=== PATIENT | female | born 1960 | race Caucasian/White ===

== ENCOUNTER 2017-10-24 19:17 | Inpatient (IN) | payer OTHER ==
[~2017-10-24] VITALS: Ht 157.5 cm; Wt 41.2 kg
[2017-10-24 19:17] VITALS: BP 124/82
[~2017-10-24 19:17] MED LIST: 8 HOUR C500 MG PO; ACIDOPHILUS LA1 EACH PO; CELEXA 20 MG TA20 MG PO; DILANTIN100 MG PO; DILANTIN50 MG PO; ENTOCORT PO; FOLIC ACID1 MG PO; HYDROCHLOROTHIA25 M1 PO; LEVOTHYROXIN0.125 M1 PO; LEVOTHYROXINE 0.1 MG PO; LISINOPRIL40 MG PO; NORVASC10 MG PO; OS-CAL 500+D C1 EACH PO; PHENYTOIN PO; PHENYTOIN50 MG PO; POTASSIUM20 PO; PRENATAL TABLE1 EAC1 PO; PREVACID30 M1 PO; PROVIGIL 200 M200 MG PO; SIMVASTATIN40 MG PO; TENORETIC 50 T1 EACH PO; TYLENOL325 MG PO; VITAMIN D 5050000 I1 PO; VITAMIN D400 UNIT; WOMEN'S DAILY1 EAC2 PO; ZYLOPRIM
[2017-10-24 19:47] LABS: ABSOLUTE NEUTROPHILS 4.7 thou/uL (1.4-8.2); BASOPHILS 0.6 % (0.0-2.0); HEMATOCRIT 39.8 % (37.0-47.0); HEMOGLOBIN 13.8 gm/dL (12.0-15.0); MCH 30.1 pg (26.0-34.0); MCHC 34.7 g/dL (28.0-37.0); MCV 86.6 fL (80.0-100.0); MONOCYTES 5.5 % (1.0-8.0); PLATELET COUNT 174 thou/uL (150-400); POLYS 71.9 % (36.0-66.0); RDW 14.1 % (10.5-14.5); WBC 6.5 thou/uL (4.0-11.0)
[2017-10-24 19:48] LABS: ANION GAP 21 mmol/L (7-16); BUN 10 mg/dL (7-18); CALCIUM 9.2 mg/dL (8.5-10.1); CHLORIDE 101 mmol/L (98-107); CO2 18 mmol/L (21-32); CREATININE 1.4 mg/dL (0.6-1.0); GLUCOSE 176 mg/dL (74-106); POTASSIUM 3.7 mmol/L (3.5-5.1); SODIUM 140 mmol/L (136-145)
[2017-10-24 19:54] LABS: ALBUMIN 4.1 g/dL (3.4-5.0); DIRECT BILIRUBIN < 0.1 mg/dL (<0.1-0.3); SGOT 21 U/L (15-37); SGPT 14 U/L (30-65); TOTAL BILIRUBIN 0.3 mg/dL (<0.1-1.0); TOTAL PROTEIN 7.5 g/dL (6.4-8.2)
[2017-10-24 19:55] LABS: AMP/METHAMP Negative (Negative); BARBITURATES Negative (Negative); BENZODIAZEPINES Negative (Negative); COCAINE POSITIVE (Negative); METHADONE Negative (Negative); OPIATES Negative (Negative); PCP Negative (Negative)
[2017-10-24 21:02] VITALS: BP 116/78
[2017-10-24 21:20] VITALS: BP 144/86
[2017-10-24 23:30] VITALS: BP 137/83
[2017-10-25 04:10] VITALS: BP 134/83
[2017-10-25 07:58] VITALS: BP 142/92; BP 155/79
[2017-10-25 11:14] VITALS: BP 134/79
[2017-10-25 15:09] LABS: GLYCOHEMOGLOBIN (HGB A1C) 4.4 % (4.8-5.6)
[2017-10-25 15:20] VITALS: BP 136/84
[2017-10-25 19:23] VITALS: BP 126/84
[2017-10-26 04:44] VITALS: BP 140/88
[2017-10-26 07:53] VITALS: BP 154/90
[2017-10-26] MEDS ORDERED: FOLIC ACID1 MG PO (09:56)
[2017-10-26] MEDS ORDERED: PHENYTOIN50 MG PO (09:56)
[2017-10-26] MEDS ORDERED: VITAMIN B-1100 MG PO (09:56)
[2017-10-26 11:05] VITALS: BP 138/90
[2017-10-26 15:05] VITALS: BP 138/90
[2017-10-26 15:46] VITALS: BP 136/90
== END 2017-10-26 20:05 | disposition home or self-care (01) | DRG 100 ==
LOC: ER 19:17 → EROBS 20:14 → 3W 20:14
PROVIDERS: Emergency Medicine; Nurse Practitioner Acute Care
DX: G40.909 Epilepsy, unspecified, not intractable, without status epilepticus (principal); E43 Unspecified severe protein-calorie malnutrition; N17.9 Acute kidney failure, unspecified; Z68.1 Body mass index [BMI] 19.9 or less, adult; E03.9 Hypothyroidism, unspecified; F14.10 Cocaine abuse, uncomplicated; F17.210 Nicotine dependence, cigarettes, uncomplicated; R73.9 Hyperglycemia, unspecified; Z79.899 Other long term (current) drug therapy
CPT/HCPCS: 10879

== ENCOUNTER 2018-01-07 04:54 | Inpatient (IN) | payer OTHER ==
[~2018-01-07] VITALS: Ht 160 cm; Wt 48.5 kg
[2018-01-07] VITALS (25 sets, daily range): BP systolic 96–158; BP diastolic 64–97
--- NOTE | ~2018-01-07 | HC ---
[facility] [place] [place] [address] CONSULTATION Name: MALVIN DE LA VEGA Room #: 246-P ADM IN M.R.#: [id number] Admission: 01/07/18 Attend Phys: Garth Martinez Discharge: Date of : 62 Report #: [id number] THIS REPORT FOR: //name// CC: JENN Martinez Physician staff DATE OF SERVICE: 01/07/2018 HISTORY OF PRESENT ILLNESS: This is a 57-year-old female patient who will not provide any reliable history. In fact, she will not even talk to me. So, most of the history is taken from the records and talking to the nurses. This patient was apparently admitted with seizure. No firsthand description of the seizure is available. It was a grand mal seizure. It was a severe seizure, and her cocaine was positive. She had multiple admissions in the past. Last time she was seen was in October of this year, and she was seen by Dr. Pereira, and Dr. Pereira has seen her in May and Dr. Silva and another neurologist has seen her in the past too and looks like she always have a cocaine positive in her system. I went back as far as 2013, and at that time, this patient has seen me, and at that time, she has also presented with a seizure. She has a known seizure disorder, but she also has a known history of pretty persistent drug abuse, especially cocaine. It looks like she also has weakness on the left side, which is also old. I do not know what her baseline status is now. REVIEW OF SYSTEMS: Positive for pretty persistent cocaine use, last time her Dilantin dose was She is toxic on Dilantin, but her biggest problem continued to be positive cocaine, which she looks like uses persistently. REVIEW OF SYSTEMS: Also positive for hypothyroidism. She had a fall in the past. She has not been able to work after the fall. I do not have the available, so I cannot tell anything about any further history in this patient. She has seen psychiatrist in the past. Presently, she has a history of brain injury. Hypokalemia, elevated lactate level. She has a history of left hemiparesis. I carried out the best I could 14-point review of system. This was all I can get. PAST MEDICAL HISTORY: Positive for seizure as well as left-sided weakness. FAMILY HISTORY: Negative for any congenital epilepsies. SOCIAL HISTORY: She is , but the is not available. We will try to get hold of him. PHYSICAL EXAMINATION: Very limited. She is sleepy. She wakes up. She will not tell me what month it is. She does look like she has speech, she will not cooperate with the cranial nerve examination, she moved the right side, she did [facility] [address] [place] [address] CONSULTATION Name: MALVIN DE LA VEGA Room #: 246-P [facility] IN M.R.#: [id number] Admission: 01/07/18 Attend Phys: Garth Martinez Discharge: Date of : 62 Report #: [id number] not move the left side. Cardiac examinations appear to be noncontributory. She is thinly built individual who does not have any dysmorphic features of eyes, ears and face. I think her hearing is adequate. She does not have any edema, cyanosis or jaundice. Blood pressure is 104/71, respirations 16, pulse is 78, temperature is 98.2. LABORATORY DATA: His white count is normal. Potassium is low. No imaging study was done. IMPRESSION: Breakthrough seizure because of very persistent cocaine use, which has been documented in all the neurologist's notes as far as 2013. She has prior encephalomalacia of the brain because of injury or stroke and that would predispose her to seizure. She is Dilantin toxic. I will let the Dilantin level come down, we probably will give her some Keppra. There may be a better medication for her, but she has to stop taking cocaine, which I doubt she will, and because of that, her prognosis looks pretty bad. RECOMMENDATIONS: 1. Noncontrast CT of the head when the patient is able to cooperate. 2. Portable EEG. 3. Start Keppra. 4. Keep the Dilantin level therapeutic around 15 or so. Thank you very much for this referral. <ELECTRONICALLY SIGNED> By: Joe Hernandez MD 01/08/18 1422 1317 1803 Joe Hernandez MD /nt
--- NOTE | ~2018-01-07 | EEG ---
[facility] [place] [place] [address] ELECTROENCEPHALOGRAM Name: MALVIN DE LA VEGA Room #: 204-P [facility] IN M.R.#: [id number] Admission: 01/07/18 Attend Phys: Garth Thurston Discharge: 01/10/18 Date of : 62 Report #: [id number] THIS REPORT FOR: //name// CC: JENN Martinez Physician staff DATE OF SERVICE: 01/07/2018 INDICATION FOR PROCEDURE: This patient is being evaluated for seizures. DESCRIPTION OF PROCEDURE: The EEG was done by placing the electrodes by standard 10-20 system of electrode placement. Both referential and sequential montages were used for recording. Background activity is about 10 Hz and 30 microvolt. The patient went to sleep that is associated with bilaterally symmetrical sleep spindle and vertex sharp waves. Photic stimulation was unremarkable. Throughout the record, no active epileptiform activity was noticed. IMPRESSION: Moderately abnormal EEG because it is intermixed with theta range slowing on both sides. That is a nonspecific abnormality, which can occur with drowsiness, effect of psychotropic medication, dementia, etc. Clinical correlation is recommended. <ELECTRONICALLY SIGNED> By: Joe Hernandez MD 01/11/18 0943 39 52 Joe Hernandez MD /nt
[~2018-01-07 04:54] MED LIST changes: +VITAMIN B-1100 MG PO
[2018-01-07 05:32] LABS: URINE BILIRUBIN NEGATIVE (Negative); URINE BLOOD 1+ (Negative); URINE CLARITY SL CLOUDY; URINE COLOR YELLOW; URINE GLUCOSE-RANDOM* NEGATIVE (Negative); URINE KETONES NEGATIVE (Negative); URINE LEUKOCYTES-REFLEX NEGATIVE (Negative); URINE NITRITE-REFLEX NEGATIVE (Negative); URINE PROTEIN (DIPSTICK) 1+ (Negative); URINE UROBILINOGEN 0.2 E.U./dl (0.2-1.0)
[2018-01-07 05:37] LABS: ABSOLUTE NEUTROPHILS 4.4 thou/uL (1.4-8.2); BASOPHILS 0.3 % (0.0-2.0); HEMATOCRIT 36.3 % (37.0-47.0); HEMOGLOBIN 12.5 gm/dL (12.0-15.0); LYMPHOCYTES 19.3 % (24.0-44.0); MCH 30.3 pg (26.0-34.0); MCHC 34.4 g/dL (28.0-37.0); MCV 88.2 fL (80.0-100.0); MONOCYTES 5.6 % (1.0-8.0); PLATELET COUNT 124 thou/uL (150-400); POLYS 74.8 % (36.0-66.0); RBC 4.12 mil/uL (4.20-5.00); RDW 14.2 % (10.5-14.5); WBC 5.8 thou/uL (4.0-11.0)
[2018-01-07 05:42] LABS: CALCIUM 8.4 mg/dL (8.5-10.1); CREATININE 1.5 mg/dL (0.6-1.0); POTASSIUM 3.1 mmol/L (3.5-5.1)
[2018-01-07 06:05] LABS: AMP/METHAMP Negative (Negative); BARBITURATES Negative (Negative); BENZODIAZEPINES Negative (Negative); COCAINE POSITIVE (Negative); METHADONE Negative (Negative); OPIATES Negative (Negative); PCP Negative (Negative)
[2018-01-07 06:24] LABS: CASTS None Seen /LPF (None Seen); MUCUS None Seen strn/LPF (None Seen); SQUAMOUS 0-3 Few /LPF (0-3); URINE RBC 0-2 Rare /HPF (0-2); URINE WBC-REFLEX None Seen /HPF (0-5)
[2018-01-07 06:25] LABS: BACTERIA-REFLEX None Seen /HPF (None Seen); CRYSTALS None Seen /LPF (None Seen)
[2018-01-07 08:32] LABS: MAGNESIUM 1.8 mg/dL (1.8-2.4)
[2018-01-08] VITALS (17 sets, daily range): BP systolic 105–168; BP diastolic 68–100
[2018-01-08 05:16] LABS: HEMATOCRIT 32.6 % (37.0-47.0); HEMOGLOBIN 11.7 gm/dL (12.0-15.0); LYMPHOCYTES 30.8 % (24.0-44.0); MCH 30.9 pg (26.0-34.0); MCV 85.9 fL (80.0-100.0); MONOCYTES 8.6 % (1.0-8.0); POLYS 59.6 % (36.0-66.0); RDW 14.1 % (10.5-14.5); WBC 3.3 thou/uL (4.0-11.0)
[2018-01-08 05:23] LABS: MAGNESIUM 1.7 mg/dL (1.8-2.4); POTASSIUM 3.8 mmol/L (3.5-5.1)
[2018-01-08 05:36] LABS: PLATELET COUNT 79 thou/uL (150-400)
[2018-01-09 05:01] VITALS: BP 140/82
[2018-01-09 07:50] VITALS: BP 130/86
[2018-01-09 16:01] VITALS: BP 118/76
[2018-01-09 19:30] VITALS: BP 91/76
[2018-01-10 03:30] VITALS: BP 138/90
[2018-01-10 07:25] VITALS: BP 135/86
[2018-01-10 11:20] VITALS: BP 124/52
[2018-01-10 12:09] VITALS: BP 135/86
[2018-01-10] MEDS ORDERED: KEPPRA 500 MG500 MG PO (14:22)
[2018-01-10 14:41] VITALS: BP 135/86
== END 2018-01-10 15:36 | disposition home or self-care (01) | DRG 100 ==
LOC: ER 04:54 → EROBS 06:37 → ICU 06:37 → 2N 01-08 07:53 → ICU 01-08 17:10 → 2N 01-10 15:36
PROVIDERS: Emergency Medicine; Nurse Practitioner
DX: G40.901 Epilepsy, unspecified, not intractable, with status epilepticus (principal); G93.40 Encephalopathy, unspecified; N17.9 Acute kidney failure, unspecified; E03.9 Hypothyroidism, unspecified; F14.10 Cocaine abuse, uncomplicated; R73.9 Hyperglycemia, unspecified; E87.6 Hypokalemia; R74.0 Nonspecific elevation of levels of transaminase and lactic acid dehydrogenase [LDH]; F17.210 Nicotine dependence, cigarettes, uncomplicated; Z87.81 Personal history of (healed) traumatic fracture; Z91.81 History of falling; Z71.6 Tobacco abuse counseling; Z87.820 Personal history of traumatic brain injury; Z71.51 Drug abuse counseling and surveillance of drug abuser; Z79.899 Other long term (current) drug therapy
CPT/HCPCS: 10078; 10081; 27001

== ENCOUNTER 2018-06-02 22:40 | Inpatient (IN) | payer OTHER ==
[~2018-06-02] VITALS: Ht 160 cm; Wt 47.7 kg
--- NOTE | ~2018-06-02 | EEG ---
[facility] [place] [address] ELECTROENCEPHALOGRAM Name: MALVIN DE LA VEGA Room #: 363-P ADM IN M.R.#: [id number] Admission: 06/02/18 Attend Phys: Neal Butts MD Discharge: Date of : 62 Report #: [id number] THIS REPORT FOR: //name// CC: JENN Butts Physician staff DATE OF SERVICE: 06/03/2018 This patient is being evaluated for seizure. EEG was done by placing the electrode by standard 10-20 system of electrode placement. Both referential and sequential montages were used for recording. Background activity in this patient's EEG is about 10 Hz and 30 microvolt. The patient went to sleep that is associated with bilateral slowing and vertex sharp waves. Photic stimulation is unremarkable. Throughout the record, no active epileptiform activity was noticed. IMPRESSION: This patient's EEG is intermixed with some theta range slowing on both sides. That is a nonspecific abnormality, which can occur with encephalopathy, effect of psychotropic medication, dementia, etc. No active epileptiform activity was noticed. Thank you very much for this referral. By: 1256 1307 Joe Hernandez MD /nt
--- NOTE | ~2018-06-02 | HC ---
[facility] [place] [place] [address] CONSULTATION Name: MALVIN DE LA VEGA Room #: 363-P ADM IN M.R.#: [id number] Admission: 06/02/18 Attend Phys: Neal Butts MD Discharge: Date of : 62 Report #: [id number] THIS REPORT FOR: //name// CC: JENN Butts Physician staff DATE OF SERVICE: 06/03/2018 HISTORY OF PRESENT ILLNESS: This is a 57-year-old female patient who was evaluated by me for seizures. This patient is a poor and somewhat reluctant historian. She is not straight forward in history multiple times. I had seen this patient in January of this year and I reviewed those records. That time, I had seen this patient and reviewed her prior records also. This patient has very persistently used cocaine over a long period of time. We had had a long discussion with her the last time and again this time that she needs to stop abusing drugs. This has been told to her multiple times, but she has never stopped doing that. She indicated that her seizures started in when she had her injury. She gets about one seizure per month. It is a grand mal seizure. It is a severe seizure. She does not know whether it has any relationship to cocaine or not, but throughout the hospitalization she has been persistently positive for cocaine when she comes for breakthrough seizure. She does not take her Dilantin on a regular basis. She tells me Dilantin is too expensive. I asked her that can she afford that, she said she can but then she does not tell me why she does not take that. She was also supposed to be on Keppra, but I do not think she has taken that or even filled that prescription. REVIEW OF SYSTEMS: Positive for prior seizure. She has been seen by psychiatrist in the past, but I do not think she followed up with them either. She has been admitted with Dilantin toxicity as well as Dilantin in subtherapeutic ranges. She does not follow up in that regard. She has a history of traumatic brain injury. This was the relevant 14-point review of systems. PAST MEDICAL HISTORY: Positive for seizure. FAMILY HISTORY: Negative for early age stroke. SOCIAL HISTORY: She says she smokes. She does not drink alcohol. PHYSICAL EXAMINATION: Indicates she is alert. She is responsive. She can follow simple commands. She is oriented. She can tell me what month it is, what hospital she is in. Cranial nerve examination 2-12 is unremarkable. There is no meningeal sign. I tried to look at the fundus, I could not because she [facility] [address] [place] [address] CONSULTATION Name: MALVIN DE LA VEGA Room #: 363[facility] IN M.R.#: [id number] Admission: 06/02/18 Attend Phys: Neal Butts MD Discharge: Date of : 62 Report #: [id number] did not cooperate. There is no respiratory difficulty. There is no cardiac abnormality. She is a thinly built individual. She does not have any dysmorphic features of eyes, ears and face. Blood pressure is 137/86, respirations 14, pulse is 68, temperature is 97.9. LABORATORY DATA: WBC count is 5. I reviewed the MRIs, which were done in January and she had a pretty extensive workup, which was mostly unremarkable. IMPRESSION: 1. Breakthrough seizure because of noncompliance and persistent use of cocaine. 2. Noncompliance with anticonvulsant. 3. History of traumatic brain injury, which probably initiated the seizure. RECOMMENDATION: 1. I had a long talk with this patient and I told her that she needs to stop using cocaine. This is absolutely mandatory because of the seizures and the consequences of that, we have discussed that in the past too. The patient is polite, but I am not sure whether she will follow up on that or not because she has never done that in the past. 2. I discussed with her the compliance and the consequences of noncompliance. 3. I think Keppra will be a better medication for her. We will restart her on that again. Presently, she can stay on Keppra and Dilantin, but ultimately she can be just switched to one or the other. 4. She needs to take seizure precautions and those were discussed with her. She cannot drive at least for 6 months. All of it was discussed in detail with the patient. Since she did have imaging study recently, I will not repeat the MRI again, but I will repeat the CAT scan some time. By: 1332 1616 Joe Hernandez MD /nt
[2018-06-02 22:40] VITALS: BP 126/81
[~2018-06-02 22:40] MED LIST changes: +KEPPRA 500 MG500 MG PO; +LEVOTHYROXINE
[2018-06-02 23:02] LABS: ABSOLUTE NEUTROPHILS 3.7 thou/uL (1.4-8.2); BASOPHILS 0.7 % (0.0-2.0); HEMATOCRIT 36.1 % (37.0-47.0); HEMOGLOBIN 12.6 gm/dL (12.0-15.0); LYMPHOCYTES 18.2 % (24.0-44.0); MCH 30.6 pg (26.0-34.0); MCV 87.5 fL (80.0-100.0); MONOCYTES 6.4 % (1.0-8.0); PLATELET COUNT 122 thou/uL (150-400); POLYS 74.7 % (36.0-66.0); RBC 4.13 mil/uL (4.20-5.00); RDW 14.2 % (10.5-14.5)
[2018-06-02 23:09] LABS: CALCIUM 8.8 mg/dL (8.5-10.1); CREATININE 1.1 mg/dL (0.6-1.0); POTASSIUM 3.6 mmol/L (3.5-5.1)
[2018-06-02 23:15] LABS: ALBUMIN 3.8 g/dL (3.4-5.0); TOTAL BILIRUBIN 0.2 mg/dL (<0.1-1.0); TOTAL PROTEIN 7.2 g/dL (6.4-8.2)
[2018-06-02 23:16] LABS: AMP/METHAMP Negative (Negative); BARBITURATES Negative (Negative); BENZODIAZEPINES Negative (Negative); COCAINE POSITIVE (Negative); METHADONE Negative (Negative); OPIATES Negative (Negative); PCP Negative (Negative)
[2018-06-02 23:48] VITALS: BP 142/93
[2018-06-02 23:53] VITALS: BP 148/85
[2018-06-03 00:20] VITALS: BP 135/83
[2018-06-03 05:00] VITALS: BP 126/85
[2018-06-03 07:54] VITALS: BP 137/86
[2018-06-03 15:32] VITALS: BP 120/81
[2018-06-03 21:00] VITALS: BP 118/74
[2018-06-04 03:42] VITALS: BP 138/81
[2018-06-04 08:41] VITALS: BP 146/93
[2018-06-04 16:30] VITALS: BP 118/80
[2018-06-04] MEDS ORDERED: NICOTINE TRANSD21 M1 TRANSDERM (18:39)
[2018-06-04 18:50] VITALS: BP 118/80
== END 2018-06-04 21:20 | disposition home or self-care (01) | DRG 100 ==
LOC: ER 22:40 → 3W 23:35 → EROBS 23:35 → 3W 06-03 00:05
PROVIDERS: Emergency Medicine
DX: G40.909 Epilepsy, unspecified, not intractable, without status epilepticus (principal); E43 Unspecified severe protein-calorie malnutrition; F14.10 Cocaine abuse, uncomplicated; E03.9 Hypothyroidism, unspecified; F17.210 Nicotine dependence, cigarettes, uncomplicated; Z91.19 Patient's noncompliance with other medical treatment and regimen; Z87.820 Personal history of traumatic brain injury; Z28.21 Immunization not carried out because of patient refusal
CPT/HCPCS: 10879

== ENCOUNTER 2018-08-03 17:16 | Inpatient (IN) | payer OTHER ==
[~2018-08-03] VITALS: Ht 165.1 cm; Wt 45.7 kg
--- NOTE | ~2018-08-03 | EEG ---
[facility] [address] [place] [place] [address] ELECTROENCEPHALOGRAM Name: MALVIN DE LA VEGA Room #: 236-P [facility] IN M.R.#: [id number] Admission: 08/03/18 Attend Phys: Michael Manning MD Discharge: Date of : 62 Report #: [id number] THIS REPORT FOR: //name// CC: Michael Moran DATE OF SERVICE: 08/06/2018 This patient's EEG was done to evaluate the patient for seizure disorder. EEG was done by placing the electrode by standard 10-20 system of electrode placement. Both referential and sequential montages were used for recording. Background activity in this patient's EEG is about 7-8 Hz and 30 microvolt. This patient's EEG demonstrates epileptiform activity, especially arising from the right side. The patient went to sleep that is associated with bilateral slowing and vertex sharp waves. IMPRESSION: This is an abnormal EEG demonstrating epileptiform activity arising from the right cerebral hemisphere. By: 1130 1139 Joe Hernandez MD /nt
--- NOTE | ~2018-08-03 | EEG ---
[facility] [place] [address] ELECTROENCEPHALOGRAM Name: MALVIN DE LA VEGA Room #: 217-P ADM IN M.R.#: [id number] Admission: 08/03/18 Attend Phys: Michael Manning MD Discharge: Date of : 62 Report #: [id number] THIS REPORT FOR: //name// CC: Michael Moran DATE OF SERVICE: 08/07/2018 This patient is being evaluated for seizure. EEG was done for comparison. The patient's EEG is done by placing the electrodes by standard 10-20 system of electrode placement. Both referential and sequential montages were used for recording. Background activity in this patient's EEG appeared to be about 9 Hz and 30 microvolt. This patient became drowsy that is associated with bilateral slowing and vertex sharp waves. Photic stimulation is unremarkable. The epileptiform activity noticed in the last EEG has resolved. IMPRESSION: Epileptiform activity noticed in the patient's last electroencephalogram has resolved. No active epileptiform activity was noticed during this record. Thank you very much for this referral. By: 1349 1405 Joe Hernandez MD /nt
[~2018-08-03 17:16] MED LIST changes: +NICOTINE TRANSD21 M1 TRANSDERM
[2018-08-03 17:17] VITALS: BP 115/76
[2018-08-03 17:47] LABS: ABSOLUTE NEUTROPHILS 3.8 thou/uL (1.4-8.2); BASOPHILS 0.3 % (0.0-2.0); HEMATOCRIT 38.3 % (37.0-47.0); HEMOGLOBIN 13.2 gm/dL (12.0-15.0); LYMPHOCYTES 9.7 % (24.0-44.0); MCH 30.2 pg (26.0-34.0); MCHC 34.4 g/dL (28.0-37.0); MONOCYTES 5.6 % (1.0-8.0); PLATELET COUNT 144 thou/uL (150-400); POLYS 84.4 % (36.0-66.0); RBC 4.35 mil/uL (4.20-5.00); RDW 14.1 % (10.5-14.5); WBC 4.5 thou/uL (4.0-11.0)
--- NOTE | 2018-08-03 17:53 | NUR ---
ISRAEL DE LA VEGA - [phone] -
[2018-08-03 17:56] LABS: CALCIUM 8.8 mg/dL (8.5-10.1); CREATININE 1.6 mg/dL (0.6-1.0); POTASSIUM 3.3 mmol/L (3.5-5.1)
[2018-08-03 17:59] LABS: URINE BILIRUBIN NEGATIVE (Negative); URINE BLOOD TRACE (Negative); URINE CLARITY CLEAR; URINE COLOR YELLOW; URINE GLUCOSE-RANDOM* NEGATIVE (Negative); URINE KETONES NEGATIVE (Negative); URINE LEUKOCYTES-REFLEX NEGATIVE (Negative); URINE NITRITE-REFLEX NEGATIVE (Negative); URINE PROTEIN (DIPSTICK) 2+ (Negative); URINE SPECIFIC GRAVITY 1.025 (1.005-1.035); URINE UROBILINOGEN 0.2 E.U./dl (0.2-1.0)
[2018-08-03 18:12] LABS: AMP/METHAMP Negative (Negative); BARBITURATES Negative (Negative); BENZODIAZEPINES Negative (Negative); COCAINE Negative (Negative); METHADONE Negative (Negative); OPIATES Negative (Negative); PCP Negative (Negative)
[2018-08-03] MEDS ORDERED: DILANTIN50 MG PO (18:18)
[2018-08-03 18:19] LABS: BACTERIA-REFLEX None Seen /HPF (None Seen); CASTS None Seen /LPF (None Seen); CRYSTALS None Seen /LPF (None Seen); MUCUS 0-3 Light strn/LPF (None Seen); SQUAMOUS >10 Many /LPF (0-3); URINE RBC None Seen /HPF (0-2); URINE WBC-REFLEX 0-5 Rare /HPF (0-5)
[2018-08-03 21:51] LABS: BE(vivo) -4.7 mmol/L (-2 to +3); HCO3 20.5 mmol/L (22.0-26.0); PCO2 38.2 mmHg (35.0-45.0); PO2 325.1 mmHg (80.0-100.0); pH 7.347 (7.360-7.450); sO2 99.7 % (92.0-98.0)
[2018-08-03 22:21] VITALS: BP 178/108
[2018-08-03 22:38] VITALS: BP 106/70
[2018-08-03 23:15] VITALS: BP 105/71
[2018-08-03 23:30] VITALS: BP 92/60
[2018-08-03 23:45] VITALS: BP 100/59
[2018-08-04] VITALS (25 sets, daily range): BP systolic 89–158; BP diastolic 55–89
--- NOTE | 2018-08-04 01:10 | NUR ---
08/03 2229: RECEIVED VERBAL REPORT FROM THU IN ER. HOSPITALIST SERVICES ADMITTING PT W/ NEURO CONSULT (WHO WAS NOTIFIED IN ER). 2254: PT ARRIVED TO ROOM 236 FROM ER, TRANSFERRED TO ICU BED, CONNECTED TO MONTIORS, FREQ VITALS STARTED, PROPOFOL INFUSING AT 55MCG/KG/MIN TO PIV. 7.5 ETT SECURED AT 23 TEETH, VENT SETTINGS AC 16, 450TV, PEEP 5, 50% FIO2, PT TOLERATING WELL. ST ON TELE 105 HR, AFEBRILE, NO DISTRESS NOTED. ADMISSION PROCESS STARTED. BLOWER BLAST FURNACE Perla BHARDWAJ AT BEDSIDE, VERBAL ORDERS RECEIVED FOR OGT PLACEMENT. 18FR OGT INSERTED AND SECURED AT 61CM W/ TAPE BY THIS RN. POSITIVE AUSCULTATION AND RETURN OF YELLOW DRAINAGE, CONNECTED TO LIS. SEE DOCUMENTED ASSESSMENT. SEIZURE PRECAUTIONS IN PLACE. REYES CATHETER PATENT, CLR YELLOW - ADEQUATE UOP. NO FAMILY AT BEDSIDE CURRENTLY, ER UNABLE TO REACH ON THE PHONE AFTER HE LEFT THE ER. BLOWER BLAST FURNACE ENTERED ORDERS IN CPOE. WILL CONTINUE TO MONITOR PER ICU STANDARDS.
[2018-08-04 05:04] LABS: HEMATOCRIT 32.5 % (37.0-47.0); HEMOGLOBIN 11.4 gm/dL (12.0-15.0); MCH 30.6 pg (26.0-34.0); MCHC 35.1 g/dL (28.0-37.0); MCV 87.3 fL (80.0-100.0); RBC 3.72 mil/uL (4.20-5.00); RDW 14.1 % (10.5-14.5); WBC 5.1 thou/uL (4.0-11.0)
[2018-08-04 05:14] LABS: CALCIUM 8.4 mg/dL (8.5-10.1); CREATININE 1.1 mg/dL (0.6-1.0); POTASSIUM 3.9 mmol/L (3.5-5.1)
--- NOTE | 2018-08-04 05:55 | NUR ---
NO ACUTE EVENTS SINCE PT'S ARRIVAL. PT REMAINS SEDATED ON PROPOFOL - WEANING. VSS, NO DISTRESS NOTED. 40 MEQ KCL REPLACED - STABLE POTASSIUM THIS AM. ADEQUATE UOP. FIO2 DECREASED TO 40% PER RT, PT TOLERATING WELL. NO SEIZURE ACTIVITY NOTED SINCE ARRIVAL TO ICU. WILL ATTEMPT TO CONTACT THIS MORNING BEFORE LEAVING AND GIVE HIM UPDATES. NO
--- NOTE | 2018-08-04 06:42 | NUR ---
PATIENT'S ISRAEL CALLED TO CHECK ON HER THIS MORNING, UPDATES GIVEN ON PATIENT. WILL BE HERE THIS MORNING.
--- NOTE | 2018-08-04 08:22 | EKG ---
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 : 1960 Requested By: Leonardo Lilly Order Number: [id number] MD: Dillon Holder Measurements Intervals [place] Rate: 110 P: 82 ID: 140 QRS: 84 QRSD: 104 T: -36 QT: 365 QTc: 494 Interpretive Statements Sinus tachycardia Nonspecific ST and T wave abnormality Borderline prolonged QT interval Compared to ECG 08/13/2016 14:02:12 ST and T wave abnormality is new Electronically Signed On 08-04-2018 8:22:12 PRESSER FIRST by Dillon Holder [email or web address] <ELECTRONICALLY SIGNED> By: Dillon Holder MD, [facility] 08/04/18 0822 1726 1726 Dillon Holder MD, [facility] /EPI
[2018-08-04 09:39] LABS: BE(vivo) -0.1 mmol/L (-2 to +3); HCO3 23.4 mmol/L (22.0-26.0); PCO2 34.3 mmHg (35.0-45.0); PO2 63.3 mmHg (80.0-100.0); pH 7.452 (7.360-7.450); sO2 93.4 % (92.0-98.0)
--- NOTE | 2018-08-04 17:11 | NUR ---
SEDATION TITRATED OFF. PT ONLY RESPONDING TO DEEP PAIN. PROPOFOL RESTARTED, INFUSING AT 5-10 MCG/KG/MIN, BREATHING OVER VENT SET RATE, SPUTUM SPECIMEN SENT. NG LWIS WITH LIGHT GREEN BILE DRAINAGE, REYES WITH GREEN URINE OUTPUT. SPOUSE PRESENT BRIEFLY INTERMITTENTLY DURING SHIFT. DR. BE PRESENT AND UPDATED SPOUSE ON PT'S STATUS. PT NOT PROGRESSING RELATED TO NEURO STATUS.
[2018-08-05] VITALS (24 sets, daily range): BP systolic 99–159; BP diastolic 56–94
[2018-08-05 04:24] LABS: ABSOLUTE NEUTROPHILS 3.7 thou/uL (1.4-8.2); BASOPHILS 0.2 % (0.0-2.0); EOSINOPHILS 0.1 % (0.0-3.0); HEMATOCRIT 31.8 % (37.0-47.0); HEMOGLOBIN 11.3 gm/dL (12.0-15.0); LYMPHOCYTES 15.9 % (24.0-44.0); MCH 30.7 pg (26.0-34.0); MCHC 35.4 g/dL (28.0-37.0); MCV 86.7 fL (80.0-100.0); MONOCYTES 8.1 % (1.0-8.0); PLATELET COUNT 67 thou/uL (150-400); POLYS 75.7 % (36.0-66.0); RBC 3.67 mil/uL (4.20-5.00); RDW 14.5 % (10.5-14.5); WBC 4.9 thou/uL (4.0-11.0)
[2018-08-05 04:30] LABS: CALCIUM 8.2 mg/dL (8.5-10.1); CREATININE 0.8 mg/dL (0.6-1.0); POTASSIUM 3.1 mmol/L (3.5-5.1)
--- NOTE | 2018-08-05 05:16 | NUR ---
ASSUMED PT CARE AT 1900. VSS. PT LIGHTLY SEDATED WITH 5MCG/KG/ML AT THE START OF SHIFT. PT IS NOT AROUSABLE TO NAME OR FOLLOW COMMAND, PT RESPONDS TO PAIN STIMULI AND MOVES EXTRMITIES WHENEVER SUCCTIONED. THERE WAS A GOOD AMOUNT OF ORAL SECRETIONS THIS SHIFT HENCE PT WAS SUCTIONED FREQUENTLY NEEDED. BLOOD SUGAR LEVELS HAVE BEEN STABLE, & PT HAS BEEN AFEBRILE. THIS NURSE NOTICED THAT PT WOULD OFTEN MOVE HER HANDS AND LEGS AT RANDOM AND ALSO DURING SUCTIONING, AT TIMES SHE WOULD BRING HER HAND TOWARDS THE ET TUBE BUT DID NOT GO FAR ATTEMPTING TO PULL IT OUT. THUS, PROPOFOL DRIP WAS INCREASED TO 10MCG/KG/MIN THIS AM AT 0440. PT HAD GOOD URINE OUTPUT OF 600 ML.PT HAS BEEN SR ALL NIGHT, OTHER VITALS ARE STABLE, ASSESSMENTS AND MEDS GIVEN ARE CHARTED, WILL CONTINUE TO MONITOR PER POC.
[2018-08-05 05:26] LABS: BE(vivo) -0.3 mmol/L (-2 to +3); HCO3 22.6 mmol/L (22.0-26.0); PCO2 31.2 mmHg (35.0-45.0); PO2 168.2 mmHg (80.0-100.0); pH 7.478 (7.360-7.450); sO2 99.3 % (92.0-98.0)
[2018-08-05 12:30] LABS: BE(vivo) -0.9 mmol/L (-2 to +3); HCO3 21.6 mmol/L (22.0-26.0); PCO2 28.9 mmHg (35.0-45.0); PO2 145.2 mmHg (80.0-100.0); pH 7.491 (7.360-7.450); sO2 99.1 % (92.0-98.0)
--- NOTE | 2018-08-05 16:51 | NUR ---
ASSESSMENTS DOCUMENTED. WEENED OFF OF PROPOFOL THIS AM. 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 PUPILS EQUAL AND REACTIVE. CPAP TRAIL DONE, SEE POST ABG'S. RESTLESS IN BED WHILE INTUBATED. STARTED ON PRECEDEX, GTT REMAINS AT 0.2 FOR COMFORT. NO SEIZURE ACTIVITY. K+ 3.1 REPLACED PER ELECTROLYTE PROTOCOL, CURRENTLY HAS SECOND BAG INFUSING. GOOD URINE OUTPUT. COPIOUS AMOUNTS OF ORAL SECRETIONS, AGITATED WHEN BEING SUCTIONED. WILL CONTINUE TO MONITOR.
[2018-08-06] VITALS (25 sets, daily range): BP systolic 97–168; BP diastolic 52–111
[2018-08-06 05:25] LABS: ABSOLUTE NEUTROPHILS 3.2 thou/uL (1.4-8.2); BASOPHILS 0.3 % (0.0-2.0); EOSINOPHILS 0.2 % (0.0-3.0); HEMATOCRIT 28.3 % (37.0-47.0); HEMOGLOBIN 9.9 gm/dL (12.0-15.0); LYMPHOCYTES 15.3 % (24.0-44.0); MCH 30.4 pg (26.0-34.0); MCHC 35.2 g/dL (28.0-37.0); MCV 86.3 fL (80.0-100.0); MONOCYTES 10.1 % (1.0-8.0); PLATELET COUNT 67 thou/uL (150-400); POLYS 74.1 % (36.0-66.0); RBC 3.27 mil/uL (4.20-5.00); RDW 14.2 % (10.5-14.5); WBC 4.3 thou/uL (4.0-11.0)
[2018-08-06 05:56] LABS: CALCIUM 7.9 mg/dL (8.5-10.1); CREATININE 0.7 mg/dL (0.6-1.0); POTASSIUM 3.3 mmol/L (3.5-5.1)
--- NOTE | 2018-08-06 06:49 | NUR ---
ASSUMED CARE OF PATIENT AROUND 1999. PATIENT RESTLESS ON PRECEDEX, TITRATED TO KEEP PATIENT FROM AGITATION. PATIENT ATTEMPTED TO PULL OUT ET TUBE, RN PREVENTING EXTUBATION. RESTRAINTS RE-TIED AND PRECEDEX INCREASED TO MAX DOSE. PATIENT MOVING SELF IN BED EVEN AFTER TURNS ARE COMPLETED. PATIENT IS PROGRESSING TOWARD GOALS, WILL CONTINUE TO MONITOR.
--- NOTE | 2018-08-06 14:56 | NUR ---
CM ASSESSMENT: CASE OPENED FOR DC PLANNING. CLINICAL INFO REVIEWED. PT ADMITTED AFTER SEIZURE WITH RESP FAILURE. EXTUBATED TODAY. HX OF TBI MANY YEARS AGO AND SEIZURES. ALSO HX OF COCAINE ABUSE. UDS ON ADMIT NEGATIVE. PT LIVES WITH HER SPOUSE , IS INDEPENDENT IWTH ADLS, NO DME USE. PRIMARY CARE AT [facility]. THERAPY EVALS ORDERED AND CM AVAILABEL TO ASSIST WITH COORDINATION OF DC NEEDS.
[2018-08-06 15:08] LABS: POTASSIUM 3.8 mmol/L (3.5-5.1)
--- NOTE | 2018-08-06 19:15 | NUR ---
ASSESSMENTS DOCUMENTED. PT RESTLESS THIS AM, ANXIOUS FOR ET TUBE TO COME OUT. CPAP DONE. SPOKE WITH DR. BLACK, ORDERS TO EXTUBATE. EXTUBATED A 1107. PT HAS BEEN ON ROOM AIR WITH SATS IN THE HIGH 90'S POST EXTUBATION. PT IS ALERT/ORIENTED WITH EPISODES OF CONFUSION AND FORGETFULNESS. IV FLUIDS INFUSING. EEG, SHOWING SEIZURE ACTIVITY, IV DILANTIN ORDER + EXTRA DOSE OF KEPPRA GIVEN. SEIZURE PRECAUTIONS IN PLACE. BED ALARM ON. VSS. UPDATED ON PT STATUS. MAGNESIUM AND POTASSIUM REPLACED IV, REDRAW THERAPEUTIC. WILL CONTINUE TO MONITOR.
[2018-08-07] VITALS (10 sets, daily range): BP systolic 141–161; BP diastolic 81–99
--- NOTE | 2018-08-07 03:24 | NUR ---
ASSUMED PT CARE AT 1900. PT ORIENTED TO SELF AND PLACE, VERY RESTLESS AND CONFUSED. VITAL SIGNS STABLE WITH ELEVATED BP. ASSESSMENT CHARTED. DELICATESSEN CLERK NOTIFIED ABOUT BP, HYDRALAZINE ORDERED AND ADMINISTERED. NO COMPLAINTS OF PAIN. HOURLY ROUGNDING COMPLETED. PT RESTLESS THROUGH OUT THE NIGHT. ATIVAN GIVEN BUT DID NOT SEEM TO WORK. PT THREATENED TO REMOVE IVS AND REYES. FREQUENT REORIENTATION AND EDUCATION COMPLETED. PT SEEMED TO FOLLOW COMMANDS APPROPRIATELY WHEN NOT RESTLESS AND ANXIOUS. PT WAS AWAKE THROUGH THE NIGHT. WILL CONTINUE TO CLOSELY MONITOR.
--- NOTE | 2018-08-07 05:00 | NUR ---
PT WAS TRANSFERED TO CCU AT ABOUT 0500. PT STABLE DURING TRANSFER.
[2018-08-07 05:44] LABS: CALCIUM 8.4 mg/dL (8.5-10.1); CREATININE 0.8 mg/dL (0.6-1.0)
--- NOTE | 2018-08-07 16:33 | NUR ---
ASSESSMENT DOCUMENTED. PT ALERT AND ORIENTED WITH FORGETFULNESS. ATTEMTED NUMEROUS TIMES TO GET OUT OF THE BED. FALL PRECAUTION ENFORCED. SEEN BY DR HENDRICKSON AND DR FAUSTIN. NO NEW ORDERS. SEIZURE PRECAUTION IN PLACE. FAILED SWALLOW STUDY TODAY. POSITIVE FOR MRSA. ON CONTACT ISOLATION. WILL CONTINUE TO MONITOR.
[2018-08-08 04:57] VITALS: BP 152/99
--- NOTE | 2018-08-08 05:12 | NUR ---
PT. ALERT TO PERSON; UNCOOPERATIVE DURING THE NIGHT; HOSTILE; TRIED TO KICK AND PUNCH NURSE THROUGH THE NIGHT; TRIED TO STAND UP SEVERAL TIMES WITHOUT CALLING FOR HELP; EXPLAINED THE NEED TO CALL FOR HELP; NEEDS REINFORMANCE; NOT ABLE TO REST; VOID INCOTINENT; VS WNL; POTASSIUM LOW; WILL REPLACE; ASSESSMENT CHARGED; FOLLOWING POC; WILL PASS ON REPORT.
[2018-08-08 08:15] VITALS: BP 142/97
[2018-08-08 12:05] VITALS: BP 145/87
[2018-08-08 16:35] VITALS: BP 142/82
--- NOTE | 2018-08-08 17:40 | NUR ---
ASSUMED PATIENT CARE THIS AM. PATIENT LYING IN BED, ALERT TO PERSON, PLACE, SITUATION AND YEAR. NO COMPLAINTS OF N/T, N/V OR PAIN. PATIENT SLEEPING MOST OF SHIFT FOR THIS RN. BED ALARM IN PLACE. PATIENT INCONTINENT OF URINE. FREQUENT MONITORING. ISOLATION MAINTAINED. SEIZURE PRECAUTIONS IN PLACE. NPO AT THIS TIME, AWAITING SPEECH.
[2018-08-08 19:34] VITALS: BP 173/100
[2018-08-09 03:21] VITALS: BP 155/84
[2018-08-09 03:28] LABS: HEMATOCRIT 34.4 % (37.0-47.0); MCH 30.4 pg (26.0-34.0); MCHC 35.3 g/dL (28.0-37.0); RBC 3.99 mil/uL (4.20-5.00); RDW 13.8 % (10.5-14.5)
[2018-08-09 03:34] LABS: HEMOGLOBIN 12.1 gm/dL (12.0-15.0)
[2018-08-09 03:36] LABS: ALBUMIN 3.1 g/dL (3.4-5.0); CALCIUM 8.9 mg/dL (8.5-10.1); CREATININE 0.9 mg/dL (0.6-1.0); MAGNESIUM 1.5 mg/dL (1.8-2.4); POTASSIUM 3.5 mmol/L (3.5-5.1); TOTAL BILIRUBIN 0.7 mg/dL (<0.1-1.0); TOTAL PROTEIN 6.7 g/dL (6.4-8.2)
--- NOTE | 2018-08-09 05:03 | NUR ---
ASSUMED CARE 1899. VSS. ASSESSMENT CHARTED. PT C/O HEADACHE REQUESTED TYLENOL AND NICOTINE PATCH, HEAD OF ADVERTISING NOTIFIED ORDERS GIVEN SEE EMAR. NPO AWAITING FURTHER SWALLOW STUDY. ISO PRECAUTIONS MAINTAINED. SEIZURES PRECAUTIONS IN PLACE, NO SEIZURES THIS SHIFT. FREQUENT URINARY INCONTINENCE. PT WAS PLEASANT THIS SHIFT BUT STATED SHE WAS NOT FOR PREVIOUS NURSES. PT AWAKE UNTIL LAST HALF OF NIGHT SLEPT WELL. WILL CONTINUE TO MONITOR AND WITH POC.
[2018-08-09 08:25] VITALS: BP 147/94
--- NOTE | 2018-08-09 12:26 | NUR ---
ASSUMED PATIENT CARE THIS AM. PATIENT LYING IN BED, A&O. ROOM AIR. NO N/V ,N/T OR PAIN STATED. PATIENT PLEASANT FOR THIS RN. TOLERATING FOOD FROM SPEECH THIS AM, WILL MONITOR PATIENT WHEN LUNCH TRAY ARRIVES. PATIENT STATES SHE IS READY TO GET UP WITH PHYSICAL THERAPY. PATIENT USES CALL LIGHT APPROPRIATLY. ABLE TO VOID PER BEDPAN TODAY.
[2018-08-09 12:30] VITALS: BP 138/77
[2018-08-09 16:50] VITALS: BP 146/90
[2018-08-09 19:47] VITALS: BP 1358/85
[2018-08-10 03:17] VITALS: BP 157/87
--- NOTE | 2018-08-10 06:17 | NUR ---
ASSUME CARE 1900. PT/VITALS STABLE. DENIES ANY PAIN. TOLERATES ACTIVITY MODERATELY. UP TO BEDSIDE COMMODE X 1 ASSIST. ASSESSMENT CHARTED. PROGRESSING WITH POC. PLAN IS POSSIBLE DISCHARGE TO REHAB FOR MUSCLE STRENGTH. WILL CONTINUE TO MONITOR AND FOLLOW WITH POC
[2018-08-10] MEDS ORDERED: DILANTIN100 MG PO (10:10)
--- NOTE | 2018-08-10 10:27 | NUR ---
Spoke with patient regarding rehab, post acute care. Patient adamently wants to return home. She has rec HH in past but cannot recall agency. Patient not agreeable to post acute care. tomorrow her day and she wants to return home.
[2018-08-10 12:14] VITALS: BP 157/87
[2018-08-10 13:18] VITALS: BP 157/87
--- NOTE | 2018-08-10 13:42 | NUR ---
ASSESSMENTS COMPLETED AND DOCUMENTED. NO S/SX OF CARDIAC OR RESP DISTRESS. NO COMPLAINTS VOICED. PT DID NOT HAVE IV ACCESS. DISCHARGE INSTRUCTIONS GIVEN WITH RX, ESCORTED OUT BY STAFF AND WITH ALL BELONGINGS LISTED DURING ADMITTION.
[2018-08-10 13:49] VITALS: BP 157/87
--- NOTE | 2018-08-10 14:06 | NUR ---
PT. DISCHARGING TODAY TO HOME WITH [facility]. SPOKE WITH SB IN ADM. HE RECEIVED REFERRAL AND CAN ACCEPT PT. DCP FAXED DC ORDERS/SUMMARY TO [facility] AND SPOKE WITH SB AND HE WILL NOTIFY PT. OF TIME OF VISITS. VISITS WILL START ON SATURDAY 08/12.
== END 2018-08-10 13:34 | disposition home health service (06) | DRG 208 ==
LOC: ER 17:16 → ICU 22:14 → EROBS 22:14 → ICU 22:45 → 2N 08-07 05:06 → ENTRNSPT 08-10 13:23 → EDTRNSPTSTS 08-10 13:25 → 2N 08-10 13:34
PROVIDERS: Emergency Medicine; Internal Medicine; Nurse Practitioner Family; Pediatrics; Student in an Organized Health Care Education/Training Program; ADMIT Hospitalist
PROC: 0BH17EZ Insertion of Endotracheal Airway into Trachea, Via Natural or Artificial Opening (ICD-10-PCS; principal; 2018-08-03)
PROC: 5A1945Z Respiratory Ventilation, 24-96 Consecutive Hours (ICD-10-PCS; principal; 2018-08-03)
DX: J96.01 Acute respiratory failure with hypoxia (principal); N17.9 Acute kidney failure, unspecified; G40.501 Epileptic seizures related to external causes, not intractable, with status epilepticus; R41.3 Other amnesia; F14.10 Cocaine abuse, uncomplicated; I10 Essential (primary) hypertension; E03.9 Hypothyroidism, unspecified; G93.89 Other specified disorders of brain; B95.62 Methicillin resistant Staphylococcus aureus infection as the cause of diseases classified elsewhere; R26.9 Unspecified abnormalities of gait and mobility; F17.210 Nicotine dependence, cigarettes, uncomplicated; Z91.81 History of falling; Z87.820 Personal history of traumatic brain injury; Z79.899 Other long term (current) drug therapy; Z91.14 Patient's other noncompliance with medication regimen; Z71.6 Tobacco abuse counseling; Z28.21 Immunization not carried out because of patient refusal; Y92.89 Other specified places as the place of occurrence of the external cause
CPT/HCPCS: 10078; 10081

== ENCOUNTER 2018-09-25 15:32 | Emergency (ER) | payer OTHER ==
[~2018-09-25] VITALS: Ht 160 cm; Wt 45.4 kg
[2018-09-25 15:33] VITALS: BP 136/92
[2018-09-25] MEDS ORDERED: DILANTIN50 MG PO ×2 (15:41→15:51)
== END 2018-09-25 16:02 | disposition home or self-care (01) ==
LOC: ER 15:32
DX: R56.9 Unspecified convulsions (principal); Z76.0 Encounter for issue of repeat prescription; E03.9 Hypothyroidism, unspecified; F17.210 Nicotine dependence, cigarettes, uncomplicated

== ENCOUNTER 2019-07-24 07:04 | Emergency (ER) | payer OTHER ==
[~2019-07-24] VITALS: Ht 157.5 cm; Wt 46.3 kg
[2019-07-24 07:52] LABS: HEMATOCRIT 35.7 % (37.0-47.0); MCHC 33.6 g/dL (28.0-37.0); MCV 86.6 fL (80.0-100.0); PLATELET COUNT 89 thou/uL (150-400); RBC 4.12 mil/uL (4.20-5.00); RDW 14.3 % (10.5-14.5); WBC 2.3 thou/uL (4.0-11.0)
[2019-07-24 07:53] LABS: URINE BILIRUBIN NEGATIVE (Negative); URINE BLOOD 1+ (Negative); URINE CLARITY CLEAR; URINE COLOR YELLOW; URINE GLUCOSE-RANDOM* NEGATIVE (Negative); URINE KETONES NEGATIVE (Negative); URINE LEUKOCYTES-REFLEX NEGATIVE (Negative); URINE NITRITE-REFLEX NEGATIVE (Negative); URINE PROTEIN (DIPSTICK) 1+ (Negative); URINE UROBILINOGEN 0.2 E.U./dl (0.2-1.0)
[2019-07-24 07:55] LABS: ANION GAP 10 mmol/L (7-16); BUN 20 mg/dL (7-18); CALCIUM 8.9 mg/dL (8.5-10.1); CHLORIDE 97 mmol/L (98-107); CO2 25 mmol/L (21-32); CREATININE 1.1 mg/dL (0.6-1.0); GLUCOSE 105 mg/dL (74-106); POTASSIUM 3.1 mmol/L (3.5-5.1); SODIUM 132 mmol/L (136-145)
[2019-07-24 08:01] LABS: ALBUMIN 3.5 g/dL (3.4-5.0); DIRECT BILIRUBIN < 0.1 mg/dL (<0.1-0.2); SGOT 34 U/L (15-37); SGPT 26 U/L (30-65); TOTAL BILIRUBIN 0.4 mg/dL (<0.1-1.0); TOTAL PROTEIN 7.1 g/dL (6.4-8.2)
[2019-07-24 08:02] LABS: SQUAMOUS 0-3 Few /LPF (0-3)
[2019-07-24 08:03] LABS: AMORPHOUS URATES Moderate /LPF (None Seen); BACTERIA-REFLEX 1-9 Few /HPF (None Seen); CASTS None Seen /LPF (None Seen); URINE RBC 0-2 Rare /HPF (0-2); URINE WBC-REFLEX None Seen /HPF (0-5)
[2019-07-24 08:29] LABS: ABSOLUTE NEUTROPHILS 1.7 thou/uL (1.4-8.2)
[2019-07-24 08:30] LABS: LARGE PLATELETS OCCASIONAL; PLATELET ESTIMATE DECREASED
[2019-07-24 18:01] LABS: AMP/METHAMP Negative (Negative); BARBITURATES Negative (Negative); BENZODIAZEPINES Negative (Negative); COCAINE POSITIVE (Negative); METHADONE Negative (Negative); OPIATES Negative (Negative); PCP Negative (Negative)
[2019-07-24 22:53] VITALS: BP 147/71
== END 2019-07-24 23:02 | disposition still patient (30) ==
LOC: ER 07:04
PROVIDERS: Emergency Medicine
DX: R56.9 Unspecified convulsions (principal); R41.82 Altered mental status, unspecified; E03.9 Hypothyroidism, unspecified; F17.210 Nicotine dependence, cigarettes, uncomplicated

== ENCOUNTER 2020-02-04 04:28 | Emergency (ER) | payer OTHER ==
[~2020-02-04] VITALS: Ht 157.5 cm; Wt 52.2 kg
[2020-02-04 04:56] LABS: ABSOLUTE NEUTROPHILS 2.2 thou/uL (1.4-8.2); BASOPHILS 1.2 % (0.0-2.0); HEMATOCRIT 36.2 % (37.0-47.0); HEMOGLOBIN 12.4 gm/dL (12.0-15.0); LYMPHOCYTES 17.8 % (24.0-44.0); MCH 29.8 pg (26.0-34.0); MCHC 34.1 g/dL (28.0-37.0); MCV 87.2 fL (80.0-100.0); MONOCYTES 7.5 % (1.0-8.0); POLYS 73.5 % (36.0-66.0); RBC 4.15 mil/uL (4.20-5.00); RDW 14.3 % (10.5-14.5)
[2020-02-04 05:03] LABS: CALCIUM 7.8 mg/dL (8.5-10.1); POTASSIUM 3.8 mmol/L (3.5-5.1)
[2020-02-04 05:12] LABS: URINE BILIRUBIN NEGATIVE (Negative); URINE BLOOD 1+ (Negative); URINE CLARITY CLEAR; URINE COLOR YELLOW; URINE GLUCOSE-RANDOM* NEGATIVE (Negative); URINE KETONES NEGATIVE (Negative); URINE LEUKOCYTES-REFLEX NEGATIVE (Negative); URINE NITRITE-REFLEX NEGATIVE (Negative); URINE PROTEIN (DIPSTICK) 1+ (Negative); URINE SPECIFIC GRAVITY >= 1.030 (1.005-1.035); URINE UROBILINOGEN 0.2 E.U./dl (0.2-1.0)
[2020-02-04 05:20] LABS: AMP/METHAMP Negative (Negative); BARBITURATES Negative (Negative); BENZODIAZEPINES Negative (Negative); COCAINE POSITIVE (Negative); METHADONE Negative (Negative); OPIATES Negative (Negative); PCP Negative (Negative)
[2020-02-04 05:24] LABS: PLATELET COUNT 87 thou/uL (150-400)
[2020-02-04 16:06] VITALS: BP 128/68
== END 2020-02-04 16:07 | disposition home or self-care (01) ==
LOC: ER 04:28
PROVIDERS: Emergency Medicine
DX: R56.9 Unspecified convulsions (principal); E03.9 Hypothyroidism, unspecified; F17.210 Nicotine dependence, cigarettes, uncomplicated; Z79.899 Other long term (current) drug therapy

== ENCOUNTER 2020-02-13 14:25 | Emergency (ER) | payer MEDICARE ==
[~2020-02-13] VITALS: Ht 160 cm; Wt 44.0 kg
[2020-02-13 14:38] VITALS: BP 136/86
[2020-02-13] MEDS ORDERED: LEVOXYL137 MCG PO ×2 (15:45→15:47)
[2020-02-13] MEDS ORDERED: DILANTIN50 MG PO (15:47)
== END 2020-02-13 15:53 | disposition home or self-care (01) ==
LOC: ER 14:25
DX: E03.9 Hypothyroidism, unspecified (principal); G40.909 Epilepsy, unspecified, not intractable, without status epilepticus; Z76.0 Encounter for issue of repeat prescription; R26.81 Unsteadiness on feet; F17.210 Nicotine dependence, cigarettes, uncomplicated; Z79.899 Other long term (current) drug therapy

== ENCOUNTER 2020-04-09 15:50 | Inpatient (IN) | payer MEDICARE ==
[~2020-04-09] VITALS: Ht 157.5 cm; Wt 43.5 kg
--- NOTE | ~2020-04-09 | EEG ---
Formerly [facility] [place] [place] [address] ELECTROENCEPHALOGRAM Name: MALVIN DE LA VEGA Room #: 245-P ADM IN M.R.#: [id number] Admission: 04/09/20 Attend Phys: Heraclio Cody MD Discharge: Date of : 62 Report #: [id number] THIS REPORT FOR: //name// CC: ALEXANDER physician/PCP Heraclio Cody DATE OF SERVICE: 04/10/2020 TECHNIQUE: This patient is being evaluated for the possibility of seizure. EEG was done by placing the electrode by standard 10-20 system of electrode placement. Both referential and sequential montages were used for recording. Background activity in this patient's EEG is about 7 Hz and 20 microvolt. Photic stimulation is unremarkable. The patient's stays drowsy throughout this record and the EEG is pretty slow. IMPRESSION: No active epileptiform activity was noticed during this record. However, the EEG is pretty disorganized and poorly formed. That is a nonspecific abnormality, which can occur with the postictal period, encephalopathy, effect of psychotropic medication, etc. Clinical correlation is recommended. By: [id number] [id number] Joe Ye MD /nt
--- NOTE | ~2020-04-09 | HC ---
[facility] [place] [address] [place] [address] CONSULTATION Name: MALVIN DE LA VEGA Room #: 437-P ADM IN M.R.#: [id number] Admission: 04/09/20 Attend Phys: Heraclio Cody MD Discharge: Date of : 62 Report #: [id number] THIS REPORT FOR: cc: ALEXANDER - Carline family physician/PCP ALEXANDER - Carline family physician/PCP Joe Ye MD ~ CC: ALEXANDER physician/PCP Heraclio Cody DATE OF SERVICE: 04/10/2020 HISTORY OF PRESENT ILLNESS: This is a 59-year-old female patient who is unable to provide any history. I tried to call the patient's and I am unable to reach him. She has an extensive record in the computer. I reviewed that. I talked to Emergency Room physician last night. I talked to the nurses looking after this patient in ICU. 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 I discussed the patient with Emergency Room physician. I had seen this patient in the past. This patient was admitted with multiple seizures. She does have a history of seizure in the past. It looks like she got significant amount of Ativan for these seizures. She has a prior history of left hemiparesis. I had talked to Emergency Room physician and asked them to get a Dilantin level on her as well as get a magnesium level on this patient. They did, the Dilantin level was subtherapeutic. I was not able to reach the patient's , but the nurses were and they indicate that the patient takes Keppra only once a day at home. The dose is not clear and it is not even clear whether the patient has taken that in the last few days. Dilantin, she takes a chewable tablet and the dose is between 150 and 200 mg. We gave her 200 mg of Dilantin last night and the level is therapeutic today. The patient has not had any seizure and I reviewed the patient's EEG and that demonstrated that the patient has no active seizure activity going on. REVIEW OF SYSTEMS: Indicates that previously she has been positive for cocaine and she has been positive for cocaine again this time. Rest of the history is unavailable except as per prior records which I saw. She apparently has weakness on the left side. She has woken up and she is not complaining of any pain or neck pain, anything at the moment. PAST MEDICAL HISTORY: Positive for traumatic brain injury, but I do not know how has that affected her in the past. She apparently has a long-term memory problem. FAMILY HISTORY: Unavailable. SOCIAL HISTORY: She apparently smokes every day and her urine is positive for cocaine. [facility] [address] [place] [address] CONSULTATION Name: MALVIN DE LA VEGA Room #: 437-P [facility] IN M.R.#: [id number] Admission: 04/09/20 Attend Phys: Heraclio Cody MD Discharge: Date of : 62 Report #: [id number] PHYSICAL EXAMINATION: Examination was carried out multiple times and it has been very limited. She just says yes and no. She does not wake up fully. She does not follow any commands. She has no neck tenderness. She does not complain of any neck pain. She moves right side, but the left side, I cannot tell. She does appear to have stable respiratory system. Blood pressure is 136/71. IMPRESSION: Breakthrough seizure because of both noncompliance and continue to use cocaine. RECOMMENDATIONS: We will start the patient on Keppra. We will continue to make an effort to reach the and start the patient on Dilantin IV if she is unable to swallow and p.o. if she is able to swallow. We will order more workup after we are able to talk to the patient's . Time spent more than 50 minutes today and majority of time was spent counseling and coordinating and the patient was seen multiple times. By: 1109 [id number] Joe Ye MD /nt
[~2020-04-09 15:50] MED LIST changes: +LEVOXYL137 MCG PO
[2020-04-09 16:09] LABS: ABSOLUTE NEUTROPHILS 2.6 thou/uL (1.4-8.2); BASOPHILS 1.1 % (0.0-2.0); HEMATOCRIT 39.1 % (37.0-47.0); HEMOGLOBIN 13.3 gm/dL (12.0-15.0); LYMPHOCYTES 32.5 % (24.0-44.0); MCH 29.8 pg (26.0-34.0); MCHC 33.9 g/dL (28.0-37.0); MONOCYTES 7.7 % (1.0-8.0); PLATELET COUNT 149 thou/uL (150-400); POLYS 58.7 % (36.0-66.0); RBC 4.44 mil/uL (4.20-5.00); RDW 14.8 % (10.5-14.5); WBC 4.5 thou/uL (4.0-11.0)
[2020-04-09 16:17] LABS: CALCIUM 8.2 mg/dL (8.5-10.1); CREATININE 1.5 mg/dL (0.6-1.0); POTASSIUM 3.5 mmol/L (3.5-5.1)
[2020-04-09 16:23] LABS: ALBUMIN 3.7 g/dL (3.4-5.0); MAGNESIUM 1.8 mg/dL (1.8-2.4); TOTAL BILIRUBIN 0.3 mg/dL (0.2-1.0); TOTAL PROTEIN 7.2 g/dL (6.4-8.2)
[2020-04-09 18:11] LABS: BE(vivo) -0.3 mmol/L (-2 to +3); HCO3 25.1 mmol/L (22.0-26.0); PCO2 44.4 mmHg (35.0-45.0); PO2 59.5 mmHg (80.0-100.0); pH 7.371 (7.360-7.450)
[2020-04-09 19:55] LABS: URINE BILIRUBIN NEGATIVE (Negative); URINE BLOOD TRACE (Negative); URINE CLARITY CLEAR; URINE COLOR YELLOW; URINE GLUCOSE-RANDOM* NEGATIVE (Negative); URINE KETONES NEGATIVE (Negative); URINE LEUKOCYTES-REFLEX NEGATIVE (Negative); URINE NITRITE-REFLEX NEGATIVE (Negative); URINE PROTEIN (DIPSTICK) NEGATIVE (Negative); URINE UROBILINOGEN 0.2 E.U./dl (0.2-1.0)
[2020-04-09 20:18] LABS: AMP/METHAMP Negative (Negative); BARBITURATES Negative (Negative); BENZODIAZEPINES Negative (Negative); COCAINE POSITIVE (Negative); METHADONE Negative (Negative); OPIATES Negative (Negative); PCP Negative (Negative)
[2020-04-09 21:08] VITALS: BP 158/90
[2020-04-09 22:00] VITALS: BP 127/75
[2020-04-09 23:22] VITALS: BP 159/90
[2020-04-10] VITALS (19 sets, daily range): BP systolic 131–161; BP diastolic 68–87
[2020-04-10 05:27] LABS: CALCIUM 8.4 mg/dL (8.5-10.1); CREATININE 0.9 mg/dL (0.6-1.0); MAGNESIUM 2.9 mg/dL (1.8-2.4); POTASSIUM 3.6 mmol/L (3.5-5.1)
[2020-04-10 05:55] LABS: HEMATOCRIT 35.6 % (37.0-47.0); HEMOGLOBIN 12.1 gm/dL (12.0-15.0); MCH 29.5 pg (26.0-34.0); MCV 86.8 fL (80.0-100.0); RBC 4.1 mil/uL (4.20-5.00); RDW 14.3 % (10.5-14.5); WBC 5.7 thou/uL (4.0-11.0)
--- NOTE | 2020-04-10 08:38 | NUR ---
SEE [facility] FOR COMPLETE ASSESSMENT. PT REMAINS LETHARGIC AND POST-ICTAL. PUPILS SLUGGISH, CONFUSED, DOES NOT ANSWER QUESTIONS. DENIES PAIN. CALLED DR JACOME FOR ORDERS DURING NOC. KEPPRA AND DILANTIN GIVEN, NO SEIZURE ACTIVITY NOTED. SEIZURE PRECAUTIONS IN PLACE. CONT PLAN OF CARE
--- NOTE | 2020-04-10 10:26 | NUR ---
chart review. unable to visit with ladi rt mental status after seizure. she been to end in feb 2020 and other past hospital visit. noted per chart she is from home with her spouse. past hx of TBI. was walker in the past. [facility] in the past. cm tried calling spouse nyla x 2, left message requested call back. will cont following as needed for dc needs.
--- NOTE | 2020-04-10 16:50 | EKG ---
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: : 1960 Requested By: Jay Bella Order Number: [id number] MD: Alejandro Spence Measurements Intervals [place] Rate: 100 P: 85 [place]: 136 QRS: 77 QRSD: 107 T: 42 QT: 369 QTc: 476 Interpretive Statements Sinus tachycardia Probable left ventricular hypertrophy Compared to ECG 08/03/2018 17:26:45 ST (T wave) deviation no longer present Electronically Signed On 04-10-2020 16:49:57 CDT by Alejandro Spence [email or web address] <ELECTRONICALLY SIGNED> By: Alejandro Spence MD, FACC 04/10/20 1649 2030 29 Alejandro Spence MD, [facility] /EPI
--- NOTE | 2020-04-10 19:48 | NUR ---
PATIENT TRASNFERRED AT 1730 TO 4S.
--- NOTE | 2020-04-10 19:53 | NUR ---
PT IS A TRANSFER FROM ICU. VSS, SINUS RYTHYM, ORIENT TO SELF. PT HAS A REYES CATHETER. PATIENT DENIES PAIN. PT IS RESTING IN BED WATCHING TV. FALL PRECAUTIONS IN PLACE WILL CONTINUE TO MONITOR.
--- NOTE | 2020-04-10 20:08 | NUR ---
NURSING NOTE DONE MELVIN/RASHMI, SHE RECEIVED THE REPORT AND PATIENT ARRIVED ON THE UNIT IN BED FROM ICU, REPORT JEFFERY/RN. PATIENT DENIES PAIN UPON ARRIVAL TO THE UNIT, REPORT GIVEN TO JANES/PETER.
--- NOTE | 2020-04-11 02:25 | NUR ---
ASSESSED AT START OF SHIFT. PT ALERT AND AWAKE TO SELF. SPOUCE CALLED AND THIS NURSE UPDATED ON PROGRESS. SEIZURE PREC MAINTAINED. PO DILANTIN GIVENX1 WITH THICK LIQUID PER DR ORDER. PT RIGOBERTO IT WELL. PT RESTLESS AT NIGHT TIME, PULLED OUT IV, TRIES TO GET UP FROM BED AND AGGRESSIVE TOWARDS OTHER RN. ORDERS RECIEVED FOR ONETIME ATIVAN. FALL PREC IN PLACE. SIDE RAILS UPX4 AND PADDED. WILL CONT WITH POC TILL EOS.
[2020-04-11 02:43] VITALS: BP 141/80
--- NOTE | 2020-04-11 07:24 | NUR ---
NO SEIZURE ATIVITIES THIS SHIFT.
--- NOTE | 2020-04-11 13:25 | NUR ---
on-going ASSESSMENT: PT TRANSFERRED UP FROM ICU AND HAS A SITTER. PT IS HERE DUE TO SEIZURE FROM NONCOMPLIANCE WITH MEDICATION AND COCAIN USE. PSYCH HAS BEEN CONSULTED TO SEE PATIENT AND POSSIBLE CANIDATE FOR SBH. CM WILL AWAIT FURTHER INPUT FROM PSYCH AT THIS TIME. CM WILL CONTINUE TO FOLLOW.
[2020-04-11] MEDS ORDERED: DILANTIN50 MG PO ×2 (13:35→13:37)
[2020-04-11] MEDS ORDERED: LEVETIRACETAM500 M1 (13:41)
[2020-04-11 17:45] VITALS: BP 166/104
--- NOTE | 2020-04-11 18:30 | NUR ---
PT ASSESSED AT START OF SHIFT. VERY CONFUSED BUT ORIENTED TO SELF. RESTLESS AND PULLS AT LINES AND JUMPS OUT OF BED AT TIMES. SITTER ORDERED FOR BEDSIDE. NEEDED IV ATIVAN THIS AFTERNOON FOR EXTREME AGITATION. RESTED AND SLEPT SOME AFTER. SWALLOW EVAL AT BEDSIDE. ATE PUREED DIET W/ HONEY-THICK LIQUIDS W/ ASSIST. NO BM. ADEQUATE URINE OUTPUT. DR. FABIAN SAW PT IN CONSULT THIS AFTERNOON.
[2020-04-11 21:07] VITALS: BP 171/103
[2020-04-11 22:00] VITALS: BP 148/88
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
[2020-04-12 06:06] LABS: HEMATOCRIT 35.8 % (37.0-47.0); HEMOGLOBIN 12.3 gm/dL (12.0-15.0); MCH 29.7 pg (26.0-34.0); MCHC 34.4 g/dL (28.0-37.0); MCV 86.2 fL (80.0-100.0); RBC 4.15 mil/uL (4.20-5.00); RDW 14.4 % (10.5-14.5); WBC 3.2 thou/uL (4.0-11.0)
[2020-04-12 06:23] LABS: ALBUMIN 3.6 g/dL (3.4-5.0); CALCIUM 8.9 mg/dL (8.5-10.1); CREATININE 0.8 mg/dL (0.6-1.0); POTASSIUM 3.2 mmol/L (3.5-5.1); TOTAL BILIRUBIN 0.5 mg/dL (0.2-1.0); TOTAL PROTEIN 7.2 g/dL (6.4-8.2)
[2020-04-12 08:00] VITALS: BP 125/84
--- NOTE | 2020-04-12 13:12 | NUR ---
ON-GOING ASSESSMENT: CM REVIEWED CHART. PT HAS ORDERS TO DISCHARGE HOME TODAY WITH NO NEEDS. CM CONTACTED PATIENTS TO NOTIFY HIM AND HE STATES TO JUST CALL HIM WHEN HE NEEDS TO COME GET HER. CM NOTIFIED BEDSIDE RN. CM SPOKE WTIH PATIENT AND SHE DECLINES THE NEED FOR ANY RESOURCES OR DRUG ABUSE RESOURCES PRIOR TO DISCHARGE. CASE CLOSED.
[2020-04-12 13:37] VITALS: BP 125/84
[2020-04-12 16:46] VITALS: BP 125/84
--- NOTE | 2020-04-12 17:14 | NUR ---
PT REFUSED ALL MEDS AND IV ACCESS. DR. BENITES, DISCHARGED PT HOME WITH . PT'S REYES WAS REMOVED, PT URINATED. 1:1 SITTER AT BEDSIDE UNTIL PT LEFT. ALL BELONGINGS WERE PACKED AND SENT HOME WITH PT AND . PT RECEIVED RX AND DISCHARGE INSTRUCTIONS.
== END 2020-04-12 17:11 | disposition home or self-care (01) | DRG 100 ==
LOC: ER 15:50 → ICU 20:08 → EROBS 20:08 → 4S 20:08 → ICU 21:30 → 4S 04-10 17:19
PROVIDERS: Emergency Medicine; Nurse Practitioner Family; Psychiatry & Neurology Neuromuscular Medicine; ADMIT Hospitalist; ATTEND Hospitalist
DX: G40.909 Epilepsy, unspecified, not intractable, without status epilepticus (principal); G93.41 Metabolic encephalopathy; J96.01 Acute respiratory failure with hypoxia; I69.354 Hemiplegia and hemiparesis following cerebral infarction affecting left non-dominant side; F14.10 Cocaine abuse, uncomplicated; F15.10 Other stimulant abuse, uncomplicated; E03.9 Hypothyroidism, unspecified; F17.210 Nicotine dependence, cigarettes, uncomplicated; E83.42 Hypomagnesemia; J44.9 Chronic obstructive pulmonary disease, unspecified; Z91.19 Patient's noncompliance with other medical treatment and regimen; Z71.51 Drug abuse counseling and surveillance of drug abuser
CPT/HCPCS: 10078; 10195

== ENCOUNTER 2020-07-26 02:20 | Emergency (ER) | payer MEDICARE ==
[~2020-07-26] VITALS: Ht 157.5 cm; Wt 49.9 kg
[~2020-07-26 02:20] MED LIST changes: +LEVETIRACETAM500 M1
[2020-07-26 04:47] LABS: URINE BILIRUBIN NEGATIVE (Negative); URINE BLOOD NEGATIVE (Negative); URINE CLARITY CLOUDY; URINE COLOR YELLOW; URINE GLUCOSE-RANDOM* NEGATIVE (Negative); URINE KETONES NEGATIVE (Negative); URINE LEUKOCYTES-REFLEX NEGATIVE (Negative); URINE PROTEIN (DIPSTICK) 1+ (Negative); URINE SPECIFIC GRAVITY 1.025 (1.005-1.035)
[2020-07-26 04:55] LABS: ANION GAP 6 mmol/L (7-16); BUN 25 mg/dL (7-18); CALCIUM 8.7 mg/dL (8.5-10.1); CHLORIDE 103 mmol/L (98-107); CO2 28 mmol/L (21-32); CREATININE 1.2 mg/dL (0.6-1.0); GLUCOSE 94 mg/dL (74-106); POTASSIUM 4.2 mmol/L (3.5-5.1); SODIUM 137 mmol/L (136-145)
[2020-07-26 04:57] LABS: ABSOLUTE NEUTROPHILS 3.5 thou/uL (1.4-8.2); BASOPHILS 0.4 % (0.0-2.0); EOSINOPHILS 0.1 % (0.0-3.0); HEMATOCRIT 38.1 % (37.0-47.0); HEMOGLOBIN 12.7 gm/dL (12.0-15.0); LYMPHOCYTES 16.3 % (24.0-44.0); MCH 28.8 pg (26.0-34.0); MCHC 33.5 g/dL (28.0-37.0); MONOCYTES 8.4 % (1.0-8.0); PLATELET COUNT 141 thou/uL (150-400); POLYS 74.8 % (36.0-66.0); RBC 4.42 mil/uL (4.20-5.00); RDW 15.4 % (10.5-14.5); WBC 4.7 thou/uL (4.0-11.0)
[2020-07-26 04:57] LABS: AMP/METHAMP Negative (Negative); BARBITURATES Negative (Negative); BENZODIAZEPINES Negative (Negative); COCAINE POSITIVE (Negative); METHADONE Negative (Negative); OPIATES Negative (Negative); PCP Negative (Negative)
[2020-07-26 05:01] LABS: ALBUMIN 3.6 g/dL (3.4-5.0); DIRECT BILIRUBIN < 0.1 mg/dL (<0.1-0.2); SGOT 32 U/L (15-37); SGPT 24 U/L (14-59); TOTAL BILIRUBIN 0.4 mg/dL (0.2-1.0); TOTAL PROTEIN 6.8 g/dL (6.4-8.2)
[2020-07-26 05:19] LABS: URINE NITRITE-REFLEX POSITIVE (Negative)
[2020-07-26 05:39] LABS: BACTERIA-REFLEX >30 Many /HPF (None Seen); CASTS None Seen /LPF (None Seen); CRYSTALS None Seen /LPF (None Seen); MUCUS 0-3 Light strn/LPF (None Seen); SQUAMOUS 0-3 Few /LPF (0-3); URINE RBC 3-10 Few /HPF (0-2); URINE WBC-REFLEX 0-5 Rare /HPF (0-5)
[2020-07-26 14:03] VITALS: BP 155/68
== END 2020-07-26 14:05 | disposition home or self-care (01) ==
LOC: ER 02:20
PROVIDERS: Emergency Medicine
DX: G40.909 Epilepsy, unspecified, not intractable, without status epilepticus (principal); I10 Essential (primary) hypertension; R41.0 Disorientation, unspecified; N39.0 Urinary tract infection, site not specified; E03.9 Hypothyroidism, unspecified; F17.210 Nicotine dependence, cigarettes, uncomplicated; Z79.899 Other long term (current) drug therapy

== ENCOUNTER 2020-09-18 08:50 | Emergency (ER) | payer OTHER ==
[~2020-09-18] VITALS: Ht 162.6 cm; Wt 54.4 kg
[~2020-09-18 08:50] MED LIST changes: +KEFLEX500 M1 PO
[2020-09-18 09:33] LABS: HEMATOCRIT 44.8 % (37.0-47.0); HEMOGLOBIN 15.6 gm/dL (12.0-15.0); MCH 29.5 pg (26.0-34.0); MCHC 34.9 g/dL (28.0-37.0); MCV 84.7 fL (80.0-100.0); PLATELET COUNT 121 thou/uL (150-400); RBC 5.29 mil/uL (4.20-5.00); WBC 6.3 thou/uL (4.0-11.0)
[2020-09-18 09:44] LABS: CALCIUM 9.5 mg/dL (8.5-10.1); POTASSIUM 3.8 mmol/L (3.5-5.1)
[2020-09-18 09:50] LABS: ALBUMIN 4.6 g/dL (3.4-5.0); TOTAL BILIRUBIN 0.9 mg/dL (0.2-1.0); TOTAL PROTEIN 8.9 g/dL (6.4-8.2)
[2020-09-18 10:07] LABS: URINE BLOOD 3+ (Negative); URINE CLARITY CLEAR; URINE GLUCOSE-RANDOM* NEGATIVE (Negative); URINE KETONES 2+ (Negative); URINE LEUKOCYTES-REFLEX NEGATIVE (Negative); URINE NITRITE-REFLEX NEGATIVE (Negative); URINE PROTEIN (DIPSTICK) 2+ (Negative); URINE SPECIFIC GRAVITY >= 1.030 (1.005-1.035)
[2020-09-18 10:09] LABS: ICTOTEST (BILI CONFIRMATORY) Negative (Negative); URINE BILIRUBIN NEGATIVE (Negative); URINE COLOR DARK YELLOW
[2020-09-18 10:15] LABS: AMP/METHAMP Negative (Negative); BARBITURATES Negative (Negative); BENZODIAZEPINES Negative (Negative); COCAINE POSITIVE (Negative); METHADONE Negative (Negative); OPIATES Negative (Negative); PCP Negative (Negative)
[2020-09-18 10:21] LABS: BACTERIA-REFLEX 1-9 Few /HPF (None Seen); CASTS None Seen /LPF (None Seen); CRYSTALS None Seen /LPF (None Seen); SQUAMOUS 0-3 Few /LPF (0-3); URINE RBC None Seen /HPF (0-2); URINE WBC-REFLEX None Seen /HPF (0-5)
[2020-09-18 10:29] LABS: ABSOLUTE NEUTROPHILS 4.7 thou/uL (1.4-8.2); PLATELET ESTIMATE NORMAL
[2020-09-18] MEDS ORDERED: KEPPRA XR500 MG PO (12:18)
[2020-09-18 13:00] VITALS: BP 175/93
--- NOTE | 2020-09-18 15:38 | EKG ---
[place] [address] [facility] [address] ELECTROCARDIOGRAM REPORT Name: MALVIN DE LA VEGA [id number] Admission: 09/18/20 Attend Phys: Discharge: 09/18/20 Date of : 62 Report #: [id number] [facility] ED Test Date: 2020-09-18 Test Time: 09:06:30 Pat Name: MALVIN DE LA VEGA Department: Room: Gender: F Cmv Driver: LAURA : 1960 Requested By: Leonard Fuchs Order Number: [id number] MD: Alejandro Spence Measurements Intervals [place] Rate: 80 P: 66 [place]: 123 QRS: 74 QRSD: 97 T: 41 QT: 432 QTc: 499 Interpretive Statements Sinus rhythm Left ventricular hypertrophy Borderline prolonged QT interval Compared to ECG 04/09/2020 20:30:59 Sinus tachycardia no longer present Electronically Signed On 09-18-2020 15:38:03 CDT by Alejandro Spence [email or web address] <ELECTRONICALLY SIGNED> By: Alejandro Spence MD, [facility] 09/18/20 1538 0906 5 Alejandro Spence MD, FACC /EPI
== END 2020-09-18 13:01 | disposition home or self-care (01) ==
LOC: ER 08:50
PROVIDERS: Emergency Medicine
DX: R56.9 Unspecified convulsions (principal); E03.9 Hypothyroidism, unspecified; F17.210 Nicotine dependence, cigarettes, uncomplicated; Z79.899 Other long term (current) drug therapy

== ENCOUNTER 2020-11-25 07:50 | Emergency (ER) | payer OTHER ==
[~2020-11-25] VITALS: Ht 154.9 cm; Wt 45.4 kg
[~2020-11-25 07:50] MED LIST changes: +KEPPRA XR500 MG PO
[2020-11-25 09:04] LABS: CALCIUM 8.5 mg/dL (8.5-10.1); CREATININE 1.5 mg/dL (0.6-1.0); POTASSIUM 3.2 mmol/L (3.5-5.1)
[2020-11-25 09:05] LABS: ABSOLUTE NEUTROPHILS 3.3 thou/uL (1.4-8.2)
[2020-11-25 09:06] LABS: BASOPHILS 0.3 % (0.0-2.0); EOSINOPHILS 0.1 % (0.0-3.0); HEMATOCRIT 38.1 % (37.0-47.0); LYMPHOCYTES 13.3 % (24.0-44.0); MCH 29.2 pg (26.0-34.0); MCHC 34.2 g/dL (28.0-37.0); MCV 85.4 fL (80.0-100.0); MONOCYTES 7.7 % (1.0-8.0); PLATELET COUNT 105 thou/uL (150-400); POLYS 78.6 % (36.0-66.0); RBC 4.46 mil/uL (4.20-5.00); RDW 14.3 % (10.5-14.5); WBC 4.2 thou/uL (4.0-11.0)
[2020-11-25 09:07] LABS: MAGNESIUM 2.1 mg/dL (1.8-2.4)
[2020-11-25 17:55] VITALS: BP 134/91
== END 2020-11-25 17:57 | disposition home or self-care (01) ==
LOC: ER 07:50
PROVIDERS: Emergency Medicine
DX: G40.909 Epilepsy, unspecified, not intractable, without status epilepticus (principal); F17.210 Nicotine dependence, cigarettes, uncomplicated; F14.10 Cocaine abuse, uncomplicated; E03.9 Hypothyroidism, unspecified; Z79.899 Other long term (current) drug therapy